=== PATIENT | male | born 1945 | race Caucasian/White ===

== ENCOUNTER → 2016-04-22 | Outpatient (CLI) | payer OTHER | LOC: FIMAGING 13:39 | PROVIDERS: ATTEND Internal Medicine Hematology & Oncology | DX: M79.89 Other specified soft tissue disorders (principal); C83.18 Mantle cell lymphoma, lymph nodes of multiple sites; C79.52 Secondary malignant neoplasm of bone marrow ==

== ENCOUNTER 2017-04-05 09:34 | Inpatient (IN) | payer OTHER ==
--- NOTE | 2017-04-05 09:50 | CPEKG ---
Heart Rate: 138 RR Interval: 435 P-R Interval: 104 QRSD Interval: 90 QT Interval: 351 QTC Interval: 532 P Wright: 0 QRS Wright: -34 T Wave Wright: -35 EKG Severity - ABNORMAL ECG - EKG Impression: Atrial flutter EKG Impression: LEFT AXIS DEVIATION EKG Impression: ST DEPRESSION, PROBABLY RATE RELATED EKG Impression: PROLONGED QT INTERVAL Electronically Signed By: Gena Bailon 05-Apr-2017 14:59:04
[2017-04-05] MEDS ORDERED: DILTIAZEM 25 MG/5 ML VIAL IVP ONE (10:03)
[2017-04-05 10:07] LABS: PLATELET COUNT 239 10^3/uL (150-400)
--- NOTE | 2017-04-05 10:07 | EDPHY ---
H & P Time Seen by Provider: 04/05/17 09:51 HPI/ROS: CHIEF COMPLAINT: Shortness of breath HISTORY OF PRESENT ILLNESS: 71-year-old male with mantle cell lymphoma presents with shortness of breath. Onset of shortness of breath 4 days ago, gradually increasing since then. Associated with an occasional cough and a subjective fever. Intermittent chest pressure over the last 4 days, without clear exacerbating or alleviating factors. Moderate chest pressure throughout the entire night last night, lasting multiple hours. No feeling of rapid heart rate and no known history of atrial fibrillation/flutter or CAD. REVIEW OF SYSTEMS: Constitutional: no chills Eyes: No visual changes ENT: No sore throat Gastrointestinal: No nausea, no vomiting, no abdominal pain Genitourinary: no dysuria Musculoskeletal: Bilateral leg swelling, left greater than right Skin: No rash Neurological: No headache, no weakness Psychiatric: No depression Past Medical/Surgical History: Lymphoma Diabetes Social History: Oncologist: Dr. Carroll Smoking Status: Current every day smoker Physical Exam: General Appearance: Alert, pleasant and talkative, appears comfortable at rest Eyes: Pupils equal and round, no conjunctival pallor or injection ENT, Mouth: Mucous membranes moist Neck: Normal inspection Respiratory: Rales at bases Cardiovascular: Regular tachycardia Gastrointestinal: Abdomen is soft and nontender Neurological: A&O, nonfocal exam Skin: Warm and dry, no rash Extremities: Bilateral pedal edema, left greater than right Psychiatric: Mood and affect normal Constitutional: Initial Vital Signs Temperature (C) 36.3 C 04/05/17 09:40 Heart Rate 137 H 04/05/17 09:40 Respiratory Rate 24 H 04/05/17 09:40 Blood Pressure 161/123 H 04/05/17 09:40 O2 Sat (%) 96 04/05/17 09:40 O2 Delivery Mode Nasal Cannula O2 (L/minute) 2 Allergies/Adverse Reactions: No Known Allergies Allergy (Unverified 04/05/17 09:38) Home Medications: Medication Instructions Recorded Insulin Glargine [Lantus 100 15 units SC HS 04/21/15 UNITS/ML (*)] Gabapentin [Neurontin 100 MG (*)] 200 mg PO HS 04/05/17 Ibuprofen [Motrin (*)] 1,000 mg PO BID@04,14 04/05/17 Insulin Glargine [Lantus 100 6 units SC DAILY 04/05/17 UNITS/ML (*)] Multivitamins [Multivitamin (*)] 1 each PO DAILY 04/05/17 Potassium Cl [Klor-Con] 10 meq PO HS 04/05/17 clonazePAM [klonoPIN (*)] 1 mg PO HS 04/05/17 diphenhydrAMINE [Benadryl 25 MG 50 mg PO BID@04,14 04/05/17 (*)] oxyCODONE/APAP 5/325 [Percocet 1 tab PO BID@04,14 PRN 04/05/17 5/325 (*)] traZODone [traZODONE 100MG (*)] 100 mg PO HS 04/05/17 Medical Decision Making - Diagnostics EKG Interpretation: EKG interpreted by me reveals atrial flutter, ventricular rate 138. Interpretation: Abnormal EKG Imaging Results: CXR: pulm edema Imaging: I viewed and interpreted images myself ED Course/Re-evaluation: This patient presents in new onset atrial flutter with a rapid ventricular rate. Diltiazem 10 mg IV given. Heart rate transiently to the 110s after IV diltiazem and more clearly revealed atrial flutter. A diltiazem drip was initiated and was titrated to HR less than 110. D-dimer is elevated at 0.95. Chest x-ray reviewed and reveals pulm edema as well as a left lower lobe infiltrate versus infarct. CT pulmonary angiogram ordered to rule out pulmonary embolism. CTA reveals a pleural effusion and shotty adenopathy; negative for PE. BNP elevated at 5440, c/w CHF secondary to Aflutter with RVR. Rate control initiated in ED, will need diuretics and cardioversion as inpt. The hospitalist service was consulted for admission to PCU. This pt utilized 35 minutes of critical care time by me exclusive of unbundled procedures. Time spent in direct contact with the pt, work order clerk, medication ordering and titration, consultation. Organ at risk: heart. Differential Diagnosis: Differential diagnosis includes though it is not limited to pneumonia, pneumothorax, pulmonary embolism, aortic dissection, pericarditis, acute coronary syndrome. - Data Points Laboratory Results: Laboratory Results 04/05/17 09:55 04/05/17 09:55 Medications Given: Apixaban (Eliquis) 5 mg PO BID CARLEE Stop: 10/03/17 12:59 Last Admin: 04/07/17 09:50 Dose: 5 mg Atorvastatin Calcium (Lipitor) 10 mg PO DAILY CARLEE Stop: 10/04/17 08:59 Last Admin: 04/07/17 09:50 Dose: 10 mg Clonazepam (Klonopin) 1 mg PO HS CARLEE Stop: 10/02/17 20:59 Last Admin: 04/06/17 21:29 Dose: 1 mg Diphenhydramine HCl (Benadryl) 50 mg PO BID@,14 [facility]LEE Stop: 10/02/17 13:59 Last Admin: 04/07/17 15:22 Dose: 50 mg Furosemide (Lasix Injection) 40 mg IVP BID@0900,1500 [facility]LEE Stop: 10/04/17 08:59 Last Admin: 04/07/17 15:22 Dose: 40 mg Gabapentin (Neurontin) 200 mg PO HS [facility]LEE Stop: 10/02/17 20:59 Last Admin: 04/06/17 21:29 Dose: 200 mg Ibuprofen (Motrin) 400 mg PO BID@,14 [facility]LEE Stop: 10/02/17 15:44 Last Admin: 04/07/17 15:22 Dose: 400 mg Insulin Glargine (Lantus Syringe) 6 units SC DAILY [facility]LEE Stop: 10/03/17 08:59 Last Admin: 04/07/17 09:50 Dose: 6 units Insulin Glargine (Lantus Syringe) 15 units SC HS [facility]LEE Stop: 10/02/17 20:59 Last Admin: 04/06/17 21:29 Dose: 15 units Lisinopril (Zestril) 5 mg PO DAILY CARLEE Stop: 10/03/17 12:59 Last Admin: 04/07/17 09:50 Dose: 5 mg Metoprolol Succinate (Toprol Xl) 25 mg PO DAILY [facility]LEE Stop: 10/02/17 14:44 Last Admin: 04/07/17 09:50 Dose: 25 mg Multivitamins (Tab-A-Aleks) 1 each PO DAILY CARLEE Stop: 10/03/17 08:59 Last Admin: 04/07/17 09:50 Dose: 1 each Oxycodone/Acetaminophen (Percocet 5/325) 1 tab PO BID@14 PRN PRN Reason: Pain, Severe Stop: 04/15/17 13:59 Last Admin: 04/06/17 14:23 Dose: 1 tab Potassium Chloride (Klor-Con) 10 meq PO HS [facility] Stop: 10/02/17 20:59 Last Admin: 04/06/17 21:29 Dose: 10 meq Trazodone HCl (Trazodone) 100 mg PO HS [facility] Stop: 10/02/17 20:59 Last Admin: 04/06/17 21:29 Dose: 100 mg Discontinued Medications Adenosine (Adenosine) 6 mg IVP ONCE ONE Stop: 04/05/17 14:16 Last Admin: 04/05/17 14:15 Dose: 6 mg Aspirin Buffered (Aspirin Ec) 325 mg PO ONCALL ONE Stop: 04/06/17 06:01 Last Admin: 04/06/17 10:24 Dose: 325 mg Atropine Sulfate (Atropine 1 Mg/10 Ml Syringe) 1 mg IVP ONCALL ONE Stop: 04/06/17 06:01 Last Admin: 04/06/17 14:24 Dose: Not Given Diazepam (Valium) 5 mg PO ONCALL ONE Stop: 04/06/17 06:01 Last Admin: 04/06/17 10:23 Dose: 5 mg Diltiazem HCl (Cardizem) 10 mg IV EDNOW ONE Stop: 04/05/17 10:16 Last Admin: 04/05/17 10:17 Dose: 10 mg Enoxaparin Sodium (Lovenox) 80 mg SC BID [facility] Stop: 10/02/17 14:29 Last Admin: 04/05/17 21:02 Dose: 80 mg Famotidine (Pepcid) 20 mg PO ONCALL ONE Stop: 04/06/17 06:01 Last Admin: 04/06/17 10:25 Dose: 20 mg Furosemide (Lasix Injection) 40 mg IVP ONCE ONE Stop: 04/05/17 14:36 Last Admin: 04/05/17 15:43 Dose: 40 mg Furosemide (Lasix Injection) 20 mg IVP ONCE ONE Stop: 04/06/17 09:01 Last Admin: 04/06/17 09:00 Dose: 20 mg Diltiazem HCl 125 mg/ Dextrose 125 mls @ 0 mls/hr IV EDNOW ONE; As Directed PRN Reason: Protocol Stop: 04/05/17 10:47 Last Admin: 04/05/17 11:32 Dose: Not Given Diltiazem/Dextrose (Diltiazem 125mg/125ml (Premix)) 125 mls @ 0 mls/hr IV EDNOW ONE; As Directed PRN Reason: Protocol Stop: 04/05/17 11:01 Last Admin: 04/05/17 11:21 Dose: 125 mls Sodium Chloride (Ns) 1,000 mls @ 0 mls/hr IV ONCALL ONE PRN Reason: TKO Stop: 04/06/17 06:01 Last Admin: 04/06/17 10:25 Dose: 1,000 mls Ibuprofen (Motrin) 1,000 mg PO BID@04,14 CARLEE Stop: 04/05/17 15:45 Last Admin: 04/05/17 18:32 Dose: Not Given Perflutren Lipid Microsphere (Definity) 1.1 mg IV ONCALL ONE Stop: 04/05/17 15:01 Last Admin: 04/05/17 18:26 Dose: Not Given Potassium Chloride (Klor-Con) 20 meq PO ONCE ONE Stop: 04/05/17 14:40 Last Admin: 04/05/17 15:46 Dose: 20 meq Potassium Chloride (Klor-Con) 20 meq PO ONCE ONE Stop: 04/07/17 10:25 Last Admin: 04/07/17 11:33 Dose: 20 meq Departure - Departure Disposition: [facility] Acute Clinical Impression: Atrial flutter Qualifiers: Atrial flutter type: typical Qualified Code(s): I48.3 - Typical atrial flutter CHF (congestive heart failure) Qualifiers: Heart failure type: systolic Heart failure chronicity: acute Qualified Code(s) : I50.21 - Acute systolic (congestive) heart failure Condition: Serious
[2017-04-05] MEDS ORDERED: DILTIAZEM 50 MG/10 ML VIAL IV ONE (10:15)
[2017-04-05] MEDS ORDERED: DILTIAZEM 125 MG in D5W 125 ML IV ONE (10:46)
[2017-04-05] MEDS ORDERED: IOPAMIDOL (ISOVUE 370) 100 ML BTL IV ONE (10:51)
[2017-04-05] MEDS ORDERED: DILTIAZEM HCL/D5W 125 ML IV ONE (11:00)
[2017-04-05] MEDS ORDERED: ACETAMINOPHEN 325 MG TAB PO PRN (13:56)
[2017-04-05] MEDS ORDERED: ONDANSETRON 4 MG/2 ML VIAL IVP PRN (13:56)
[2017-04-05] MEDS ORDERED: ONDANSETRON DISINTEGRATING 4 MG TAB PO PRN (13:56)
[2017-04-05] MEDS ORDERED: IBUPROFEN 200 MG TAB PO SCH (14:00)
[2017-04-05] MEDS ORDERED: OXYCODONE/APAP 5/325 TAB PO PRN (14:00)
[2017-04-05] MEDS ORDERED: ADENOSINE 6 MG/2 ML VIAL IVP ONE (14:15)
--- NOTE | 2017-04-05 14:15 | CPEKG ---
Heart Rate: 140 RR Interval: 429 QRSD Interval: 104 QT Interval: 304 QTC Interval: 464 QRS [place]: -40 T Wave [place]: -8 EKG Severity - ABNORMAL ECG - EKG Impression: ATRIAL FLUTTER (UNCHANGED FROM PRIOR) EKG Impression: LEFT AXIS DEVIATION EKG Impression: NONSPECIFIC T ABNORMALITIES, INFERIOR LEADS Electronically Signed By: Obinna Morrison 05-Apr-2017 16:07:04
[2017-04-05] MEDS ORDERED: FUROSEMIDE 40 MG/4 ML VIAL IVP ONE (14:35)
[2017-04-05] MEDS ORDERED: POTASSIUM CL 20 MEQ TAB PO ONE (14:39)
[2017-04-05] MEDS ORDERED: TEMAZEPAM 15 MG CAP PO PRN (14:50)
[2017-04-05] MEDS ORDERED: NITROGLYCERIN 0.4 MG BTL SL PRN (14:50)
--- NOTE | 2017-04-05 14:54 | GHP ---
[f rep st] HISTORY AND PHYSICAL DATE OF ADMISSION: 04/05/2017 HISTORY OF PRESENT ILLNESS: The patient is a pleasant 71-year-old gentleman with a history of mantle cell lymphoma, who presents with 4 days of dyspnea and lower extremity edema. He has also had a wet cough. He has had some chest symptoms that are not really pressure or pain. He denies palpitations . He had a similar episode like this 10 or 12 months ago where he had some chest discomfort and lowe r extremity edema, that resolved. He has no previous history of any cardiac morbidity. He has had s ome subjective fevers and cough. Regarding his lymphoma, he received 6 rounds of chemotherapy with no change in his status, so he is c urrently in an observation status following up with Dr. Carroll. REVIEW OF SYSTEMS: Complete 10-point review of systems was conducted and was negative, except as not ed in the HPI. PAST MEDICAL HISTORY: Mantle cell lymphoma, type 2 diabetes on insulin. SOCIAL HISTORY: He is a smoker. He drinks rare alcohol. He lives in [place]. 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 FAMILY HISTORY: Parents . ALLERGIES: There are no known drug allergies. MEDICATIONS: Clonazepam, diphenhydramine, gabapentin, ibuprofen, glargine, multivitamin, Percocet, p otassium, trazodone. PHYSICAL EXAMINATION: PRESENTING VITALS: Temp 36.3, blood pressure 161/123, pulse 137, breathing 24 times a minute, 96% on room air. GENERAL: No acute distress. HEENT: Sclerae anicteric. Orophary nx clear. Mucous membranes are moist. NECK: Supple, without lymphadenopathy or JVD. LUNGS: Clear to auscultation bilaterally. HEART: S1, S2. The patient is tachycardic, irregularly irregular, wi thout murmurs. ABDOMEN: Soft, nontender, nondistended. LOWER EXTREMITIES: Show 1+ edema bilateral ly. Calves are nontender. SKIN: Without rash. LABORATORY: Sodium 143, potassium 3.7, chloride 111, bicarb 23, BUN 16, creatinine 1.3, glucose 174. Troponin 0.03, BNP is 5400. D-dimer is 0.95. CBC shows a white count of 6, hematocrit 42, platele ts are 239,000. IMAGING: Chest x-ray interpreted by me shows moderate pulmonary edema. EKG interpreted by me shows tachycardia at 138, with normal axis and intervals. There are inferior ST depressions versus retrogr aretha P waves. Following the administration of adenosine while on the bedside monitor, flutter waves became apparent . CTA of the chest shows no thromboembolic disease and pulmonary edema. He also has mediastinal lympha denopathy. I have discussed the case with Dr. Lizzette Bailon as well as [facility] of Cardiology. ASSESSMENT AND PLAN: A 71-year-old gentleman who presents with atrial flutter. 1. Atrial flutter. This was revealed by adenosine administration. He really has not responded to a denosine. A bedside echo has been ordered. Will probably start metoprolol thereafter. He warrants anticoagulation. Enoxaparin has been started. 2. Lymphadenopathy. This is attributable to his mantle cell lymphoma. 3. Congestive heart failure. 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 Will follow his troponi ns. An echocardiogram has been ordered and we can follow them, and if he has wall motion abnormaliti es then ischemic evaluation is warranted. 4. Cough. The patient has cough, subjective fever. Check influenza. 5. Diabetes. Continue his insulin. 6. Prophylaxis. Therapeutically anticoagulated. DISPOSITION: Inpatient status. 40 minutes critical care spent on the admission of this patient. /[id number]/MODL
[2017-04-05] MEDS ORDERED: PERFLUTREN LIPID MICROSPHERES 1.1 MG/ML VIAL IV ONE (15:00)
--- NOTE | 2017-04-05 15:32 | PDMN ---
Medical Necessity Medical necessity: M510 supraventricular arrhythmias A-1: aflutter revealed with adenosine administration. EKG shows ST depressions and prolonged QT interval ,tachycardia, CHF- suspect tachycardia induced cardiomyopathy, pt with lymphadenopathy attributed to mantle cell lymphoma, DM, anticipate > 2 midnights ongoing monitoring, eval and tx.
[2017-04-05] MEDS: METOPROLOL SUCCINATE XR 25 MG TAB PO SCH (15:46)
[2017-04-05] MEDS: diphenhydrAMINE 25 MG CAP PO SCH (15:52)
--- NOTE | 2017-04-05 16:10 | ECHO ---
[email or web address] [address] [address] Main: [phone] Fax: Transthoracic Echocardiogram Name: YELENA GLEZ MR#: [id number] Study Date: 04/05/2017 Study Time: 02:16 PM Date of : 1945 Age: 71 year(s) Height: 177.8 cm (70 in.) Weight: 83.46 kg (184 lb.) BSA: 2.01 m2 Gender: Male Examination: Echo with Definity Indication: rapid aflutter with CHF Image Quality: Adequate Contrast: 0.250 mg I.V. dose of Definity was administered to improve endocardial border definition. Requested by: Vicente Delgado BP: 150 mmHg/109 mmHg Heart Rate: Rhythm: Atrial flutter Indication: rapid aflutter with CHF Procedure Staff [employer] Pelt Grader: Kathy Ramirez [facility] Reading Physician: Requesting Provider: Measurements: Chambers Valvular Assessment AV/MV Valvular Assessment TV/PV Normal Normal Normal Name Value Range Name Value Range Name Value Range Ao Viky (MM): 3.6 cm (2.2 cm-3.7 AV Vmax: 0.84 m/s (1 m/s-1.7 TR Vmax: 3.26 mm/s ( - ) cm) m/s) TR PGmax: 43 mmHg ( - ) IVSd (2D): 1.0 cm (0.6 cm-1.1 AV maxP mmHg ( - ) syst. PAP: 58 mmHg ( - ) cm) LVOT Vmax: 0.66 m/s (0.7 m/s-1.1 PV Vmax: 0.46 m/s (0.6 m/s-0.9 LVDd (2D): 5.7 cm (4.2 cm-5.9 m/s) m/s) cm) PV PGmax: 1 mmHg ( - ) LVDs (2D): 5.1 cm (2.1 cm-4 cm) LVPWd (2D): 1.0 cm (0.6 cm-1 cm) LVEF (BP): 28 % (>=55 %) RVDd(2D): 4.1 cm (1.9 cm-3.8 cmmm) Continued Measurements: Chambers Valvular Assessment TV/PV Name Value Name Value LADs Lon.0 cm CVP (est.): 15 mmHg LA Area: 23.6 cm2 LA Volume: 83 ml LA Volume Index: 41.3 ml/m2 TAPSE: 1.5 cm RA Area: 22.8 cm2 Patient: YELENA GLEZ Study Date: 04/05/2017 Page 1 of 2 02:16 PM Additional Vessels Name Value Ao Ascendin.6 cm Findings: Left Ventricle: Mild concentric LV hypertrophy. Severely reduced systolic LV function. EF is 28 %. Unable to assess diastolic dysfunction. No LV apical thrombus. Left ventricular size is upper limits of normal. Difficult to assess for wall motion abnormalities due to rapid heart rate (130bpm). . Right Ventricle: Mildly dilated right ventricle. Mildly reduced RV function. Left Atrium: The left atrium is moderately dilated. Right Atrium: The right atrium is moderately dilated. Mitral Valve: There is mild thickening of the mitral valve leaflets. Moderate to severe mitral regurgitation. No mitral stenosis is present. Aortic Valve: The aortic valve is tri-leaflet and functions normally. There is no aortic valve regurgitation. No aortic valve stenosis is present. Low aortic velocities consistent with low cardiac output. Tricuspid Valve: The tricuspid valve is normal in appearance and function. Moderate tricuspid regurgitation is present. Right ventricular systolic pressure measures 58mmHg. The pulmonary artery pressure is moderately increased. Pulmonic Valve: The pulmonic valve is normal in appearance and function. There is no pulmonic regurgitation seen. Aorta: Normal size aortic root measuring 3.6 cm. Normal size ascending aorta measuring 3.6 cm. IVC: The IVC is dilated. There is less than 50% respiratory excursion. Pericardium: Trivial pericardial effusion. (No Signature Object) Patient: YELENA GLEZ Study Date: 04/05/2017 Page 2 of 2 02:16 PM [id number]
[2017-04-05] MEDS ORDERED: DILTIAZEM 125 MG in D5W 125 ML IV SCH (16:15)
[2017-04-05] MEDS: ENOXAPARIN 80 MG/0.8 ML SYR SC SCH ×2 (16:16→21:02)
[2017-04-05] MEDS: IBUPROFEN 200 MG TAB PO SCH (16:33)
--- NOTE | 2017-04-05 19:20 | GCON ---
[f rep st] CONSULTATION CARDIOLOGY CONSULTATION INDICATION FOR CARDIOLOGY CONSULTATION: Atrial flutter, cardiomyopathy, systolic heart failure. HISTORY OF PRESENT ILLNESS: The patient is a 71-year-old male with significant past history that includes mantle cell lymphoma (primary oncologist, Dr. Carroll ), hypertension, diabetes, and current tobacco abuse. Patient reporting starting 4 days ago, noticing some dyspnea with lower extremity edema. He reports significant wet cough with this. He feels like he has had an occasional fever, lasting 1-2 hours, and dissipating without any medical necessity. He also reports that during this similar time frame, he has had midsternal mild episodes of chest pressure, coming on spontaneously, or when he is extremely short of breath, usually dissipates within 10-15 minutes of rest. He reports these symptoms have been worsening over the last few days, and decided to come to the emergency department for further evaluation, due to he felt like they were not improving. He does report mild orthopnea for the last 2 days, but denies of any PND, near-syncope, palpitations, lightheadedness, or syncopal events. Denies symptoms suggestive of TIA or CVA. Upon arrival to the emergency department, initial electrocardiogram was done, it appeared to be atrial flutter with ventricular rate around 138 BPM. Chest x- ray done at that time did show diffuse reticular opacities with small right effusion, suggesting mild CHF with pulmonary edema. Laboratory studies drawn initially showed a normal troponin level at 0.030, but elevated BNP of 5444. It is also noted that he had a D-dimer of 0.95, and he was taken to CT scan, in which he had a CTA done showing no evidence of pulmonary thromboembolism, mild CHF with small pleural effusion and bibasilar compression atelectasis, shortened lymphoma present throughout the axilla, mediastinum and pulmonary enma. The patient was admitted to the telemetry unit from the emergency department by Dr. Delgado; there was some question about potentially if he was truly in A- flutter versus atrial tachycardia versus sinus tachycardia. He was given 6 mg of adenosine, with which the A-flutter diagnosis was confirmed. At this current time, the patient reports he continues to be short of breath with any exertion, denies any chest pressure or pain, reports no palpitations; and denies of any lightheadedness, orthopnea, near-syncope, or syncopal events. Denies any symptoms suggestive of TIA or CVA. He does inform me that he feels possibly a week ago, feeling that his urine output has been greatly reduced. PAST MEDICAL HISTORY: Patient with significant past medical history that includes: 1. Mantle cell lymphoma. 2. Type 2 diabetes. 3. Hypertension. 4. Emphysema. 5. Tobacco abuse. 6. GERD. PAST SURGICAL HISTORY: Includes: 1. Cataract surgery. 2. Cholecystectomy. 3. Left knee replacement. 4. Retina detachment surgery. SOCIAL HISTORY: He is , he has 2 adult children who are alive and well. He smokes 1-2 packs per day for the last 50 years, he occasionally uses alcohol. He denies of any illicit drug use. He is a semi-retired maintenance machinist. ALLERGIES: Patient has no known drug allergies. MEDICATIONS AT HOME: Include Percocet 5/325 one tablet p.o. twice daily p.r.n. , Benadryl 50 mg p.o. at 0400 and 1400, multivitamin 1 tablet p.o. daily, ibuprofen 1000 mg p.o. twice daily at 0400 and 1400, Lantus insulin 6 units subcu daily, Lantus-L insulin 15 units subcu h.s., clonazepam 1 mg p.o. h.s., gabapentin 200 mg p.o. h.s., trazodone 100 mg p.o. h.s., potassium chloride 10 mEq p.o. at h.s. REVIEW OF SYSTEMS: A 10-point review of systems done on patient all negative except as mentioned above. PHYSICAL EXAMINATION: GENERAL APPEARANCE: Medium built, well-groomed male. He is alert and oriented to person, place, time, and situation. The patient appears to be under no acute distress at this time. CURRENT VITAL SIGNS: 141/97, heart rate is 139, atrial flutter on the monitor; respirations are 22; saturating 94% on 2 L nasal cannula. Temperature on admission was 36.6 degrees Celsius. HEENT: Head is normocephalic. Lips and tongue are pink and moist with no signs of cyanosis. Conjunctivae pink. NECK: Trachea is midline, +2 carotid pulses bilateral, no auscultated bruits, 6-7 cm of jugular vein elevation at 45-degree angle with positive hepatojugular reflex. RESPIRATORY: Lungs are with mild expiratory wheezes, no rhonchi, no rales noted. CARDIAC: Tachy rate, irregular rhythm, S1, S2. No S3, S4, gallops, rubs or murmurs noted. No S3 noted. ABDOMEN: Soft, nontender, bowel sounds x4 quadrants, no organomegaly, no palpable masses. SKIN: [place], warm, dry, no cyanosis, +2 peripheral edema in bilateral lower extremities to thighs. VASCULAR: +2 carotids bilateral, +2 radials bilateral, +2 posterior tibial pulses bilateral, +1 dorsal pedals bilateral. LABORATORY STUDIES: Laboratory studies done on admission showed WBC of 6.24, hemoglobin of 14.5, hematocrit of 41.8, platelet count 239. D-dimer of 0.95, sodium 143, potassium 3.7, chloride 111, CO2 of 23, BUN 16, creatinine 1.3, glucose 174, calcium 8.7, troponin 0.030, proBNP 5440. DIAGNOSTICS: Electrocardiogram, chest x-ray, and chest CT as mentioned above. Preliminary of echocardiogram being done at bedside during my assessment showing EF around 10% to 15%; complete study will be read by Dr. Munson in the next 20-30 minutes. ASSESSMENT AND PLAN: 1. Atrial flutter: Patient noted with atrial flutter, appears to be 2:1, currently on diltiazem drip at 15 mg with previous boluses given, adequate rate control is not obtainable at this time on current medication regime. Will add metoprolol succinate to his medication regime to see if we can get better rate control. He certainly has a significant CHADS-VASc score of at least 3, we will start him on Lovenox therapy here. We will order a TSH level. He will be made n.p.o. after midnight; if he does not convert by tomorrow morning, we will plan for him to undergo transesophageal echocardiogram cardioversion. 2. Chest pain: The patient reporting chest pain with extreme exertions over the last few days. He has multiple cardiac risk factors that include hypertension, age, sex, and current smoker. His current ejection fraction is 10 -15%. Currently, he is pain-free. Initial troponin negative. Will cycle troponins. With his reduced ejection fraction, and his symptoms of heart failure, we will plan for him to undergo left cardiac catheterization to be done by Dr. Munson pre cardioversion in the morning. We will make sure he will hold his a.m. dose of Lovenox for heart catheterization. Started on beta- fede, as mentioned above. Will order him to have aspirin tonight. If he does have recurrence of chest pain or if his troponins with significant elevation over the evening, catheterization can always be changed to more urgent. 3. Systolic heart failure with cardiomyopathy: Preliminary echocardiogram showing significant reduction of ejection fraction at 10% to 15%. Plan on cardiac catheterization as above. Will start him on metoprolol succinate tonight; potentially, this was all induced by tachyarrhythmia, but to rule out potential ischemia, will plan on cardiac catheterization as mentioned above. He does have significant jugular venous distention on examination with peripheral edema, and continues to have mild shortness of breath. Chest x-ray did show some mild pulmonary edema. Will start him on Lasix therapy of 40 mg intravenous push at this time. 4. Hypertension: The patient is moderately hypertensive at this time, will continue on current diltiazem intravenously, metoprolol succinate as mentioned above, and Lasix. More than likely, we will need to add an angiotensin- converting enzyme inhibitor or an angiotensin receptor fede to his medication regimen in the next few days for his systolic heart failure. Will continue to monitor and adjust medications as needed. 5. Cough: Patient reports ongoing cough with previous fever, Dr. Delgado of Hospital Services is checking his influenza status. 6. Diabetes: Patient is a diabetic, he is being followed by Hospitalist Services for his medication regimen. 7. History of mantle cell lymphoma: He is followed by Oncology, he currently reports that he is in a monitoring stage. His primary oncologist is Dr. Carroll. 8. Tobacco abuse: Smoking sensation counseling done. Thank you for this consultation. We will be glad to follow along with you. Total time spent, greater than 40 minutes. /[id number]/MODL MTDD
[2017-04-05] MEDS: clonazePAM 1 MG TAB PO SCH (20:58)
[2017-04-05] MEDS: GABAPENTIN 100 MG CAP PO SCH (20:58)
[2017-04-05] MEDS: POTASSIUM CL 10 MEQ TAB PO SCH (20:58)
[2017-04-05] MEDS: traZODone 100 MG TAB PO SCH (20:58)
[2017-04-05] MEDS: INSULIN GLARGINE 100 UNITS/ML UNIT SC SCH (20:59)
[2017-04-05] MEDS ORDERED: INSULIN GLARGINE 15 UNIT SC SCH (21:00)
[2017-04-06] MEDS ORDERED: IBUPROFEN 200 MG TAB PO SCH (04:00)
[2017-04-06 05:00] LABS: PLATELET COUNT 215 10^3/uL (150-400)
[2017-04-06 05:07] LABS: INR 1.06 (0.83-1.16)
[2017-04-06] MEDS ORDERED: FAMOTIDINE 20 MG TAB PO ONE (06:00)
[2017-04-06] MEDS ORDERED: DIAZEPAM 5 MG TAB PO ONE (06:00)
[2017-04-06] MEDS ORDERED: ATROPINE SULFATE 1 MG/10 ML SYR IVP ONE (06:00)
[2017-04-06] MEDS ORDERED: NS 1,000 ML IV ONE (06:00)
[2017-04-06] MEDS ORDERED: ASPIRIN EC 325 MG TAB PO ONE ×2 (06:00→10:13)
[2017-04-06] MEDS: IBUPROFEN 200 MG TAB PO SCH ×2 (06:12→15:21)
[2017-04-06] MEDS: diphenhydrAMINE 25 MG CAP PO SCH ×2 (06:12→15:21)
[2017-04-06] MEDS: MULTIVITAMINS 1 EACH TAB PO SCH (08:34)
[2017-04-06] MEDS: METOPROLOL SUCCINATE XR 25 MG TAB PO SCH (08:47)
[2017-04-06] MEDS ORDERED: FUROSEMIDE 20 MG/2 ML VIAL IVP ONE (09:00)
[2017-04-06] MEDS ORDERED: INSULIN GLARGINE SC SCH (09:00)
--- NOTE | 2017-04-06 09:04 | CPEKG ---
Heart Rate: 131 RR Interval: 458 QRSD Interval: 92 QT Interval: 352 QTC Interval: 520 QRS [place]: -18 T Wave [place]: 263 EKG Severity - ABNORMAL ECG - EKG Impression: ATRIAL FLUTTER/FIBRILLATION, A-RATE 270 EKG Impression: BORDERLINE LEFT AXIS DEVIATION EKG Impression: NONSPECIFIC T ABNORMALITIES, INFERIOR LEADS EKG Impression: PROLONGED QT INTERVAL Electronically Signed By: Obinna Morrison 06-Apr-2017 11:33:29
[2017-04-06] MEDS: INSULIN GLARGINE 100 UNITS/ML UNIT SC SCH ×2 (09:52→21:29)
[2017-04-06] MEDS ORDERED: diphenhydrAMINE 25 MG CAP PO ONE (10:12)
[2017-04-06] MEDS ORDERED: FAMOTIDINE 20 MG TAB ONE (10:13)
[2017-04-06] MEDS ORDERED: DIAZEPAM 5 MG TAB ONE (10:13)
--- NOTE | 2017-04-06 10:46 | PDHPUP ---
History & Physical Update H&P update statement: This history and physical update is based on an assessment of the patient which was completed after admission or registration (within 24 hours), but prior to the surgery/procedure. H&P update: H&P reviewed & patient examined, no change in patient's condition since H&P completed (Sedation by anesthesia.)
[2017-04-06] MEDS ORDERED: LIDOCAINE 1% 300 MG/30 ML SDV ONE (11:08)
[2017-04-06] MEDS ORDERED: IOPAMIDOL (ISOVUE-370) 150 ML BTL IV ONE (11:08)
--- NOTE | 2017-04-06 12:00 | PDANEPAE ---
ANE History of Present Illness JUNIOR/CV/LHC ANE Past Medical History - Cardiovascular History Hx Hypertension: Yes Hx Arrhythmias: Yes Hx Chest Pain: Yes Hx Coronary Artery / Peripheral Vascular Disease: No Hx CHF / Valvular Disease: Yes Hx Palpitations: No Cardiovascular History Comment: EF 10-15% - Pulmonary History Hx COPD: Yes Hx Asthma/Reactive Airway Disease: No Hx Recent Upper Respiratory Infection: No Hx Oxygen in Use at Home: No Hx Sleep Apnea: No - Endocrine History Hx Diabetes: Yes Hypothyroid: No Hyperthyroid: No Obesity: no - Renal History Hx Renal Disorders: No - Liver History Hx Hepatic Disorders: No - Neurological & Psychiatric Hx Hx Neurological and Psychiatric Disorders: No - Cancer History Hx Cancer: Yes Cancer History Comment: mantle cell lymphoma ANE Review of Systems Review of Systems: - Exercise capacity Exercise capacity: >=4 METS - Systems Constitutional: Reports: malaise (says he can do 4 mets of activity) ANE Patient History - Allergies Allergies/Adverse Reactions: No Known Allergies Allergy (Unverified 04/05/17 09:38) - Home Medications Home Medications: Insulin Glargine [Lantus 100 UNITS/ML (*)] 15 units SC HS 04/21/14 [Last Taken 04/04/17] Gabapentin [Neurontin 100 MG (*)] 200 mg PO HS 04/05/17 [Last Taken 04/04/17] Ibuprofen [Motrin (*)] 1,000 mg PO BID@,04/05/17 [Last Taken 04/05/17 04:00 ] Insulin Glargine [Lantus 100 UNITS/ML (*)] 6 units SC DAILY 04/05/17 [Last Taken 04/05/17] Multivitamins [Multivitamin (*)] 1 each PO DAILY 04/05/17 [Last Taken Unknown] Potassium Cl [Klor-Con] 10 meq PO HS 04/05/17 [Last Taken 04/04/17] clonazePAM [klonoPIN (*)] 1 mg PO HS 04/05/17 [Last Taken 04/04/17] diphenhydrAMINE [Benadryl 25 MG (*)] 50 mg PO BID@,04/05/17 [Last Taken 04:00] oxyCODONE/APAP 5/325 [Percocet 5/325 (*)] 1 tab PO BID@,14 PRN 04/05/17 [Last Taken 04/05/17 04:00] traZODone [traZODONE 100MG (*)] 100 mg PO HS 04/05/17 [Last Taken 04/04/17] - NPO status NPO Status: no food or drink >8 hours - Anes Hx Anes Hx: no prior problems - Smoking Hx Smoking Status: Current every day smoker - Alcohol Use Alcohol Use: None - Family Anes Hx Family Anes Hx: none ANE Labs/Vital Signs - Labs Result Diagrams: 04/06/17 04:39 04/06/17 04:39 - Vital Signs Vital Signs: reviewed preoperatively; see RN documention for details Blood Pressure: 132/89 Heart Rate: 110 Respiratory Rate: 20 O2 Sat (%): 92 Height: 177.8 cm Weight: 80.9 kg ANE Physical Exam - Airway Mallampati Score: Class 2 Mouth exam: normal dental/mouth exam - Pulmonary Pulmonary: expiratory wheeze - Cardiovascular Cardiovascular: irregularly irregular - ASA Status ASA Status: IV ANE Anesthesia Plan Anesthesia Plan: MAC
[2017-04-06] MEDS ORDERED: PROPOFOL 200 MG/20 ML VIAL ONE (12:01)
--- NOTE | 2017-04-06 12:58 | PDDXCAT ---
Diagnostic Cath Note - . Date: 04/06/17 Sap Gatherer: Arpit High-risk criteria on non-invasive testing: severe resting left ventricular dysfunction (LVEF<35%) - Procedure Access: right groin Procedure: left heart catheterization, coronary angiography, left ventriculogram , right heart catheterization - Materials Left Heart Cath size: 6F Left Heart Cath materials: standard multipack (JL4, JR4, pigtail) Right Heart Cath size: 7F Right Heart Cath materials: PWP catheter - Findings-Left Heart Catheterization LM: large with seperate left and circumflex ostium LAD: unobstructed LCX: dominant: Unobstructed RCA: nondominant.unobstructed EDP: 16 mmHg LVEF: 15% Wall motion: global hypokinesis - Findings-Right Heart Catheterization RA: 15 mmHg RV: 45/ mmHg PA: 45/18 mmhg PAOP: 15 mmHg Complications: none Estimated blood loss: <50ml Closure method: Angioseal Assessment: Non-ischemic cardiomyopathy with ef 15% Plan: medical therapy.
--- NOTE | 2017-04-06 12:59 | PDTEE1 ---
JUNIOR Cardioversion Procedure Procedure: electrical cardioversion, transesophageal echo Indications: atrial fibrillation, cardiomyopathy Consent: signed and in chart Anticoagulation: lovenox Procedural Details: Pads were placed in anterior-posterior position. JUNIOR probe was advanced and standard images obtained. There is no evidence of left atrial or left atrial appendage thrombus. Synchronized cardioversion attempt #1: 200J Results: normal sinus rhythm Conclusions: successful JUNIOR cardioversion
--- NOTE | 2017-04-06 13:41 | POSTANESTH ---
Post Anesthetic Evaluation Cardiovascular Status: Similar to Pre-Op Cond Respiratory Status: Similar to Pre-op Cond. Level of Consciousness/Mental Status: Can Participate in Eval Pain Control: Adequate, Prn Tx Ordered Nausea/Vomiting Control: Adequate, Prn Tx Ordered Complications Possibly Related to Anesthesia: None Noted
[2017-04-06] MEDS: APIXABAN 5 MG TAB PO SCH ×2 (14:23→21:29)
--- NOTE | 2017-04-06 14:43 | HOSPPROG ---
Hospitalist Progress Note Assessment/Plan: 71 yo M admitted w aflutter and breathlessness. found to have global LV HK w low ef acute systolic heart failure: presumed 2/2 uncontrolled aflutter now cardioverted on varsha-i diuresis afutter: cardioverted smoking: counselled cessation proph: anticoagulated w eliquis dispo: inpt Subjective: s/p JUNIOR cardioversion and cornary angiogram. case d/w dr montgomery Objective: Vital Signs Temp Pulse Resp BP Pulse Ox 36.7 C 110 H 20 132/89 H 92 04/06/17 07:48 04/06/17 12:00 04/06/17 12:00 04/06/17 12:00 04/06/17 12:00 Laboratory Results 04/06/17 04:39 04/06/17 04:39 04/05/17 04/06/17 04/07/17 05:59 05:59 05:59 Intake Total 398 Output Total 1960 250 Balance -1562 -250 PT 14.0 SEC (12.0-15.0) 04/06/17 04:39 INR 1.06 (0.83-1.16) 04/06/17 04:39 - Physical Exam Constitutional: no apparent distress, appears nourished Eyes: PERRL, anicteric sclera Ears, Nose, Mouth, Throat: moist mucous membranes, hearing normal Cardiovascular: regular rate and rhythym, no murmur, rub, or gallop, No systolic murmur Respiratory: no respiratory distress, no rales or rhonchi Gastrointestinal: normoactive bowel sounds, soft, non-tender abdomen Genitourinary: no bladder fullness, No wyatt in urethra Skin: warm, normal color Musculoskeletal: full muscle strength Neurologic: AAOx3 ICD10 Worksheet Patient Problems: Problems Problem Status Onset Atrial flutter Acute Atrial flutter Acute CHF (congestive heart failure) Acute
[2017-04-06] MEDS: LISINOPRIL 5 MG TAB PO SCH (15:21)
--- NOTE | 2017-04-06 15:25 | ASMTCMCOM ---
CM Note CM Note Notes: Met with patient. He is s/p successful cardioversion today. He lives alone with a dog in a compact apartment and has many supportive friends. He is normally independent in all ADLs. I don't anticipate any discharge needs, but if any arise, he knows to ask for Case Management. Date Signed: 04/06/2017 03:24 PM Electronically Signed By:Taylor Headley RN
[2017-04-06] MEDS: GABAPENTIN 100 MG CAP PO SCH (21:29)
[2017-04-06] MEDS: POTASSIUM CL 10 MEQ TAB PO SCH (21:29)
[2017-04-06] MEDS: traZODone 100 MG TAB PO SCH (21:29)
[2017-04-06] MEDS: clonazePAM 1 MG TAB PO SCH (21:29)
[2017-04-07] MEDS: IBUPROFEN 200 MG TAB PO SCH ×2 (06:57→15:22)
[2017-04-07] MEDS: diphenhydrAMINE 25 MG CAP PO SCH ×2 (06:57→15:22)
[2017-04-07] MEDS: FUROSEMIDE 40 MG/4 ML VIAL IVP SCH ×2 (09:48→15:22)
[2017-04-07] MEDS: LISINOPRIL 5 MG TAB PO SCH (09:50)
[2017-04-07] MEDS: APIXABAN 5 MG TAB PO SCH ×2 (09:50→21:12)
[2017-04-07] MEDS: METOPROLOL SUCCINATE XR 25 MG TAB PO SCH (09:50)
[2017-04-07] MEDS: INSULIN GLARGINE 100 UNITS/ML UNIT SC SCH ×2 (09:50→21:13)
[2017-04-07] MEDS: ATORVASTATIN CALCIUM 10 MG TAB PO SCH (09:50)
[2017-04-07] MEDS: MULTIVITAMINS 1 EACH TAB PO SCH (09:50)
[2017-04-07] MEDS ORDERED: POTASSIUM CL 20 MEQ TAB PO ONE (10:24)
--- NOTE | 2017-04-07 11:06 | PDCARPN ---
Cardiology Progress Note Chief Complaint: Patient reports improvement in shortness of breath, but still noticed dyspnea on exertion with any significant activity Assessment/Plan: Assessment: 71-year-old male with significant past history of mantle cell lymphoma, hypertension, diabetes, current tobacco abuse. Admitted on 04/05/2017 for shortness of breath, with occasional chest pressure. Found to be in atrial flutter with RVR. Significantly elevated BNP of 5440. Negative troponins x3. Echocardiogram done on 04/05/2017 showing mild concentric LV hypertrophy with the , severely reduced LV function with EF of 28%. Diastolic dysfunction no LV apical thrombus , LV size is upper limits of normal. RV was dilated, with mildly reduced RV function, LA was moderately dilated, RA was moderately dilated , moderate to severe MR moderate TR , trivial pericardial effusion. Left heart catheterization done on 04/06/2017, showing mild coronary artery disease, no flow limiting disease. LVEF was 15% , EDP was measured at 16 mm Hg. Right heart catheterization showed RA of 15, RV 45, PA 45/18, wedge of 15. Following heart catheterization, patient underwent JUNIOR and cardioversion with successful conversion back into sinus rhythm. Today: Patient reporting improvement in shortness of breath. Continues to have JVD of 5-6 cm above sternal notch at a 45 degree angle. Continues to note mild rales in bases bilateral. Denies of any chest pain or pressure. Has maintained sinus rhythm overnight. o>I but no significant change in weight. Plan: 1. Systolic heart failure: Recent echocardiogram showing dilated LV. EF off of cardiac catheterization done yesterday was 15%. Nonischemic cardiomyopathy. Potentially this was all rate induced, from his atrial flutter. Patient has been started on metoprolol succinate , Elie inhibitor of lisinopril added yesterday. Continues to appear volume overloaded, will continue with IV diuretics of Lasix 40 mg twice daily. Supplemental potassium given today diuresis therapy. Repeat BMP and BNP in a.m.. Will plan on repeating echocardiogram once he is on med management , in the next month or 2. 2. Atrial flutter: Cardioverted yesterday, maintaining sinus rhythm. Beta- fede as mentioned above. Patient with chads Vasc score of at least 3. Has been started on anticoagulation of Eliquis. 3. CAD: Cardiac catheterization showing non flow limiting disease. Will hold off on aspirin therapy at this time due to being on anticoagulation of Eliquis. Fasting lipid panel done yesterday showing total cholesterol 149, triglycerides 173 , LDL 94, HDL 22. Will start on low-dose atorvastatin at bedtime for secondary risk prevention, plan on repeating fasting lipid and liver panel 6-8 weeks. 4. Hypertension: BP appears to be well controlled on current medication regime , continue to monitor. 5. Valvular heart disease: Recent echocardiogram showing moderate to severe MR while in atrial flutter , hopefully with medical treatment , and maintaining sinus rhythm , this will improve, repeat echocardiogram as mentioned above in a month or 2. 04/07/17 11:04 Reviewed/Discussed With: hospitalist (Dr Delgado), other (Dr Munson) Objective: Vital Signs (8 Hrs) Temp Pulse Resp BP Pulse Ox 04/07/17 07:22 36.8 C 74 18 121/73 H 95 04/07/17 04:00 36.5 C 69 16 111/56 L 93 Intake/Output (24 Hrs) 04/06/17 04/07/17 04/08/17 05:59 05:59 05:59 Intake Total 398 750 Output Total 1960 1075 Balance -1562 -325 Intake: Oral (ml) 350 750 IV Intake (ml) 48 Output: Urine (ml) 1959 1075 Urinal 1710 1075 Other: Weight 80.9 kg 80.9 kg 80.4 kg Number of Voids Urinal 2 Result Diagrams: 04/06/17 04:39 04/07/17 08:50 Cardiac Labs: Cardiac Lab Results (72 Hrs) 04/05/17 04/05/17 22:25 16:11 Troponin I 0.028 0.033 - Physical Exam Constitutional: WDWN, no apparent distress Ears, Nose, Mouth, Throat: moist mucous membranes Cardiovascular: regular rate and rhythm, no rubs, systolic murmur (2/6 lsb), jugular vein distention (5-6 cm above sternal notch at 45 degree angle.), pulses symmetric bilat, No carotid bruit Peripheral Pulses: 1+: dorsalis-pedis (R), dorsalis-pedis (L) Respiratory: other (Rales noted in bases, rhonchi throughout.) Gastrointestinal: normoactive bowel sounds Skin: warm, No no edema (+2 peripheral edema bilateral lower extremities to knees.) Neurologic: AAOx3 Psychiatric: cooperative, following commands ICD10 Worksheet Patient Problems: Problems Problem Status Onset Atrial flutter Acute Atrial flutter Acute
--- NOTE | 2017-04-07 14:48 | HOSPPROG ---
Hospitalist Progress Note Assessment/Plan: 71 yo M admitted w aflutter and breathlessness. 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 tele: no events (interp by me) Objective: Vital Signs Temp Pulse Resp BP Pulse Ox 36.6 C 80 18 129/85 H 95 04/07/17 11:39 04/07/17 11:39 04/07/17 11:39 04/07/17 11:39 04/07/17 11:39 Laboratory Results 04/06/17 04:39 04/07/17 08:50 04/06/17 04/07/17 04/08/17 05:59 05:59 05:59 Intake Total 398 750 Output Total 1960 1075 Balance -1562 -325 PT 14.0 SEC (12.0-15.0) 04/06/17 04:39 INR 1.06 (0.83-1.16) 04/06/17 04:39 - Physical Exam Constitutional: no apparent distress, appears nourished Eyes: PERRL, anicteric sclera Ears, Nose, Mouth, Throat: moist mucous membranes, hearing normal Cardiovascular: regular rate and rhythym, no murmur, rub, or gallop Respiratory: no respiratory distress, no rales or rhonchi Gastrointestinal: normoactive bowel sounds, soft, non-tender abdomen Genitourinary: no bladder fullness, No wyatt in urethra Skin: warm, normal color Musculoskeletal: full muscle strength Neurologic: AAOx3 ICD10 Worksheet Patient Problems: Problems Problem Status Onset Atrial flutter Acute Atrial flutter Acute
[2017-04-07] MEDS: traZODone 100 MG TAB PO SCH (21:12)
[2017-04-07] MEDS: GABAPENTIN 100 MG CAP PO SCH (21:12)
[2017-04-07] MEDS: POTASSIUM CL 10 MEQ TAB PO SCH (21:12)
[2017-04-07] MEDS: clonazePAM 1 MG TAB PO SCH (21:12)
[2017-04-08] MEDS: IBUPROFEN 200 MG TAB PO SCH (05:53)
[2017-04-08] MEDS: diphenhydrAMINE 25 MG CAP PO SCH (05:53)
[2017-04-08] MEDS ORDERED: POTASSIUM CL 20 MEQ TAB PO ONE (08:06)
[2017-04-08 08:26] VITALS: RESP 18; TEMP 98.1
--- NOTE | 2017-04-08 08:31 | PDCARPN ---
Cardiology Progress Note Chief Complaint: Patient reports improvement in shortness of breath, peripheral edema is down. Assessment/Plan: Assessment: 71-year-old male with significant past history of mantle cell lymphoma, hypertension, diabetes, current tobacco abuse. Admitted on 04/05/2017 for shortness of breath, with occasional chest pressure. Found to be in atrial flutter with RVR. Significantly elevated BNP of 5440. Negative troponins x3. Echocardiogram done on 04/05/2017 showing mild concentric LV hypertrophy with the , severely reduced LV function with EF of 28%. Diastolic dysfunction no LV apical thrombus , LV size is upper limits of normal. RV was dilated, with mildly reduced RV function, LA was moderately dilated, RA was moderately dilated , moderate to severe MR moderate TR , trivial pericardial effusion. Left heart catheterization done on 04/06/2017, showing mild coronary artery disease, no flow limiting disease. LVEF was 15% , EDP was measured at 16 mm Hg. Right heart catheterization showed RA of 15, RV 45, PA 45/18, wedge of 15. Following heart catheterization, patient underwent JUNIOR and cardioversion with successful conversion back into sinus rhythm. Today: Patient reports no chest pain. Reports shortness of breath has improved. Peripheral edema has also improved. His weight is down 2 kilos since yesterday. Unfortunately, patient has been throwing out his urine without having it measured. No true I&Os at this time. Laboratory studies do show improvement of BNP, down to 3460 today. BUN creatinine remained stable. Potassium mildly low at 3.4. Continuous cardiac monitoring showing sinus rhythm , occasional PAC, occasional PVC. No malignant arrhythmias or pauses. Patient insistence to go home today. Plan: 1. Systolic heart failure: Recent echocardiogram showing dilated LV. EF off of cardiac catheterization done yesterday was 15%. Nonischemic cardiomyopathy. Potentially this was all rate induced, from his atrial flutter. Weight is down 2 kilos from yesterday. Peripheral edema is improved. BNP is also down from admission. Continue on current metoprolol succinate and lisinopril dosages. Transitioned over to p.o. Torsemide at 20 mg p.o. Q.day. Potassium supplement given this morning, and have increased his p.m. Dosage. 2. Atrial flutter: Cardioverted yesterday, maintaining sinus rhythm. Continue on metoprolol succinate. Patient with chads Vasc score of at least 3. Has been started on anticoagulation of Eliquis. 3. CAD: Cardiac catheterization showing non flow limiting disease. Will hold off on aspirin therapy at this time due to being on anticoagulation of Eliquis. Fasting lipid panel done yesterday showing total cholesterol 149, triglycerides 173 , LDL 94, HDL 22. Started on atorvastatin, will plan on repeating fasting lipid and liver panel in 6-8 weeks. 4. Hypertension: BP appears to be well controlled on current medication regime , continue to monitor. 5. Valvular heart disease: Recent echocardiogram showing moderate to severe MR while in atrial flutter, hopefully with medical treatment , and maintaining sinus rhythm , this will improve, repeat echocardiogram as mentioned above in a month or 2. 6. Hypoxia: Patient unable to maintain SpO2 greater 90% on room air. If discharged today, will need be set up with home oxygen. 6. Tobacco abuse: Smoking cessation counseling done Patient insistent go home today. We have discussed the importance of daily weights, he is to notify our office if gains more than 2 lb in a day or 5 lb in a week. Would like him to have a repeated BMP panel drawn next Wednesday, I have set him up for a follow-up visit next Wednesday. 04/08/17 08:25 Subjective: Patient denies of any chest pressure or pain. Denies of any palpitations, lightheadedness, near-syncope, syncopal events. Reviewed/Discussed With: hospitalist (Dr Delgado), other (Dr Munson) Objective: Vital Signs (8 Hrs) Temp Pulse Resp BP Pulse Ox 04/08/17 04:00 36.9 C 70 16 126/75 H 91 L Intake/Output (24 Hrs) 04/07/17 04/08/17 04/09/17 05:59 05:59 05:59 Intake Total 750 1380 Output Total 1075 Balance -325 1380 Intake: Oral (ml) 750 1380 Output: Urine (ml) 1075 Urinal 1075 Other: Weight 80.9 kg 78 kg Number of Voids Urinal 2 2 Result Diagrams: 04/06/17 04:39 04/08/17 03:54 Cardiac Labs: Cardiac Lab Results (72 Hrs) 04/05/17 04/05/17 22:25 16:11 Troponin I 0.028 0.033 - Physical Exam Constitutional: no apparent distress Ears, Nose, Mouth, Throat: moist mucous membranes Cardiovascular: regular rate and rhythm, no rubs, systolic murmur (2/6 along left sternal border.), jugular vein distention (4 cm above sternal notch at a 45 degree angle.), pulses symmetric bilat Peripheral Pulses: 2+: carotid (R), carotid (L), dorsalis-pedis (R), dorsalis- pedis (L) Respiratory: other (Diminished in bases bilateral, but no rhonchi, rales, or wheezing noted.) Gastrointestinal: normoactive bowel sounds Skin: no rashes, warm, No no edema (Trace to +1 peripheral edema bilateral lower extremities) Neurologic: AAOx3 Psychiatric: cooperative, interactive, following commands, anxious ICD10 Worksheet Patient Problems: Problems Problem Status Onset CHF (congestive heart failure) Acute Atrial flutter Acute Atrial flutter Acute
[2017-04-08] MEDS: APIXABAN 5 MG TAB PO SCH (08:49)
[2017-04-08] MEDS: MULTIVITAMINS 1 EACH TAB PO SCH (08:49)
[2017-04-08] MEDS: LISINOPRIL 5 MG TAB PO SCH (08:50)
[2017-04-08] MEDS: ATORVASTATIN CALCIUM 10 MG TAB PO SCH (08:50)
[2017-04-08 08:52] VITALS: BP 140/90
[2017-04-08] MEDS: METOPROLOL SUCCINATE XR 25 MG TAB PO SCH (08:52)
[2017-04-08] MEDS: INSULIN GLARGINE 100 UNITS/ML UNIT SC SCH (08:58)
--- NOTE | 2017-04-08 09:22 | HOSPPROG ---
Hospitalist Progress Note Assessment/Plan: 71 yo M admitted w aflutter and breathlessness. found to have global LV HK w low ef acute systolic heart failure: presumed 2/2 uncontrolled aflutter now cardioverted on varsha-i diuresis aflutter: cardioverted smoking: counselled cessation proph: anticoagulated w eliquis dispo: inpt home today w outpt cardiology follow up > 30 minutes on dc Subjective: anxious for dc Objective: Vital Signs Temp Pulse Resp BP Pulse Ox 36.7 C 73 18 140/90 H 97 04/08/17 08:00 04/08/17 08:52 04/08/17 08:00 04/08/17 08:52 04/08/17 08:00 Laboratory Results 04/06/17 04:39 04/08/17 03:54 04/07/17 04/08/17 04/09/17 05:59 05:59 05:59 Intake Total 750 1380 Output Total 1075 Balance -325 1380 PT 14.0 SEC (12.0-15.0) 04/06/17 04:39 INR 1.06 (0.83-1.16) 04/06/17 04:39 - Physical Exam Constitutional: no apparent distress, appears nourished Eyes: PERRL, anicteric sclera Ears, Nose, Mouth, Throat: moist mucous membranes, hearing normal Cardiovascular: regular rate and rhythym, no murmur, rub, or gallop Respiratory: no respiratory distress, no rales or rhonchi Gastrointestinal: normoactive bowel sounds, soft, non-tender abdomen Genitourinary: No wyatt in urethra Skin: warm, normal color Musculoskeletal: full muscle strength, no muscle tenderness Neurologic: AAOx3 ICD10 Worksheet Patient Problems: Problems Problem Status Onset Atrial flutter Acute Atrial flutter Acute CHF (congestive heart failure) Acute
[2017-04-08 09:23] VITALS: PULSE 91; O2SAT 83
--- NOTE | 2017-04-08 09:23 | PDHOMEO2F ---
Home Oxygen Face to Face Home Orders: I certify that a physician or a nurse practitioner or physician's digital assistant has had a jjiw-eh-lmyo encounter with this patient on the date of this order due to the diagnosis listed, which relates to the primary reason the patient requires home oxygen. Alternative treatments have been tried, or considered, and deemed ineffective. It is anticipated that supplemental oxygen will result in improvement with treatment. Home oxygen qualifying diagnosis: chf SpO2 on room air (%): 83 Frequency of home oxygen needed: with activity Home oxygen liters per minute: 2 Home oxygen delivery device: nasal cannula Concentrator: No E-tanks for mobility and back up: Yes If ordering portable O2, is the patient mobile in the home?: Yes I certify that, based on these findings, the home oxygen is medically necessary for this patient for the following length of time. Length of time home oxygen needed: 99 years
[2017-04-08] MEDS ORDERED: TORSEMIDE 20 MG TAB PO SCH (10:00)
--- NOTE | 2017-04-08 11:31 | ECHO ---
[email or web address] [address] [address] Main: [phone] Fax: Transesophageal Echocardiography Name: YELENA GLEZ MR#: [id number] Study Date: 04/06/2017 Study Time: 12:42 PM Date of : 1945 Age: 71 year(s) Height: ( ) Weight: ( ) BSA: Gender: Male Examination: JUNIOR Indication: Pre Cardioversion Image Quality: Contrast: Requested by: Bacilio Soriano Heart Rate: Rhythm: Atrial fibrillation BP: / Procedure Staff Oracle Bpm Developer: Ángel Donaldson RDCS Reading Physician: Jozef Munson MD Requesting Provider: JUNIOR Exam Details Conclusions: moderate to severe mitral regurgitation. No thrombus within the left atrial appendage. Severely reduced ejection fraction. No pericardial effusion. Measurements: Chambers Valvular Assessment AV/MV Valvular Assessment TV/PV Normal Normal Normal Name Value Range Name Value Range Name Value Range Additional Measurements: Findings: Left Atrial Appendage: Good color flow doppler in the left atrial appendage. No thrombus in left appendage. Mitral Valve: Known moderate to severe MR. Exam Comments: The EF is estimated at appoximately 15-20% Proceeded with successful elective DC cardioversion.. l1n (No Signature Object) Patient: YELENA GLEZ Study Date: 04/06/2017 Page 1 of 2 12:42 PM Patient: YELENA GLEZ Study Date: 04/06/2017 Page 2 of 2 12:42 PM [id number]
--- NOTE | 2017-04-08 17:50 | GDS ---
[f rep st] DISCHARGE SUMMARY DISCHARGE DIAGNOSES: 1. Uncontrolled atrial flutter. 2. Tachycardia induced cardiomyopathy. 3. Diabetes. 4. Mantle cell lymphoma. HOSPITAL COURSE: Please see admission history and physical by Dr. Vicente Delgado. The patient prese nted on the with increased work of breathing. He also had lower extremity edema. He is noted to be tachycardic. His rhythm was consistent with at rial tachycardia versus atrial flutter. He received adenosine where flutter waves became apparent. Echocardiogram demonstrated depressed EF. JUNIOR cardioversion was performed. He underwent cardiac cat heterization showing non-flow limiting coronary disease. He was diuresed for a couple of days and initiated on metoprolol, statin, Eliquis, and lisinopril. T he patient is discharged on torsemide as well. He has rapid outpatient followup with Cardiology. He did well while here. He was also discharged on oxygen. He remains a smoker. He is advised to use caution with smoking and oxygen. /[id number]/MODL
[2017-04-08] MEDS ORDERED: POTASSIUM CL 20 MEQ TAB PO SCH (21:00)
--- NOTE | 2017-04-12 18:05 | PQFORM ---
PHYSICIAN QUERY FORM Needs Your Response This query form is being sent to you to assure this patient record is coded properly. Please respond to the question below: [employer] QUESTION: Dear Dr. Delgado, In reviewing this patients medical record, it was noted the patient had the diagnosis of systolic heart failure. Documented in Dr. Munson's consultation dated 04/05 patient was diagnosed with "Systolic heart failure w/ cardiomyopathy. " Documented in the Hospitalist progress notes dated 04/06-04/08 patient had the diagnosis of "acute systolic heart failure." Documented in the Cardiology progress notes dated 04/07-04/08 patient has the diagnosis of "systolic heart failure," with an EF of 15%. After study, should the diagnosis of "acute systolic heart failure" be included in the discharge summary? _X___ Yes No Unable to determine Other more appropriate diagnosis Thank you BRAYDEN Morris HIM/Coding Dept. [phone] INSTRUCTIONS FOR RESPONSE: Answer question by clicking on the "Edit Document" button. Move cursor to area below the stars. When complete, hit "Save." Click on the "Sign" button, then click "Sign" again. Type in your PIN and hit "Enter." MTDD
== END 2017-04-08 10:44 | disposition home or self-care (01) | DRG 286 ==
LOC: F2W 12:22
PROVIDERS: ADMIT Internal Medicine; ATTEND Internal Medicine
DX: I48.92 Unspecified atrial flutter (principal); I50.21 Acute systolic (congestive) heart failure; C83.18 Mantle cell lymphoma, lymph nodes of multiple sites; I42.9 Cardiomyopathy, unspecified; R00.0 Tachycardia, unspecified; E11.9 Type 2 diabetes mellitus without complications; K21.9 Gastro-esophageal reflux disease without esophagitis; Z72.0 Tobacco use; Z79.4 Long term (current) use of insulin
CPT/HCPCS: 96365; C1760; J0153; J1644; J1650; J1815; J1940; J2704; Q9957; Q9967